=== PATIENT | male | born 1970 | race Caucasian/White ===

== ENCOUNTER 2020-09-12 12:45 | Inpatient (IN) | payer MEDICARE, OTHER ==
[~2020-09-12] VITALS: Ht 182.9 cm; Wt 87.7 kg
--- NOTE | 2020-09-12 12:55 | NUR ---
Dr Landry at the bedside for MSE.
[2020-09-12] MEDS ORDERED: CEFTRIAXONE 1 G in IV DEXTROSE 5% 50 ML IV ONE (13:00)
[2020-09-12] MEDS ORDERED: IV NORMAL SALINE 1000 ML BAG IV ONE ×2 (13:00→16:45)
--- NOTE | 2020-09-12 13:52 | NUR ---
GT site wound CX collected and sent to LAB.
[2020-09-12 13:53] LABS: MEAN CORPUSCULAR VOLUME 85.6 fL (73.0-96.2); PLATELET COUNT (AUTO) 334 K/uL (152-348)
[2020-09-12] MEDS ORDERED: IV NORMAL SALINE 250 ML IV ONE (13:54)
[2020-09-12] MEDS ORDERED: IOHEXOL 300MG/ML 100 ML INFUS..BTL ONE ×2 (13:54→16:00)
[2020-09-12] MEDS ORDERED: SWABABLE VALVE TRANSFER SET EA MC ONE (13:54)
[2020-09-12] MEDS ORDERED: CEFTRIAXONE /D5W 50ML IVPB **ER PYXIS IV ONE (13:55)
[2020-09-12] MEDS ORDERED: HYDR-4209 GT (14:10)
[2020-09-12] MEDS ORDERED: BUSP10TA3 GT (14:10)
[2020-09-12] MEDS ORDERED: INSU100I26 SQ (14:10)
[2020-09-12] MEDS ORDERED: ASCO500P18 GT (14:10)
[2020-09-12] MEDS ORDERED: ROSU10TA2 GT (14:10)
[2020-09-12] MEDS ORDERED: FERR325T28 GT (14:10)
[2020-09-12] MEDS ORDERED: MULT-213 GT (14:10)
[2020-09-12] MEDS ORDERED: CHLO473M3 PO (14:10)
[2020-09-12] MEDS ORDERED: POLY17PO4 GT (14:10)
[2020-09-12] MEDS ORDERED: IPRA3AMP23 IH ×2 (14:10)
[2020-09-12] MEDS ORDERED: LORA-259 GT (14:10)
[2020-09-12] MEDS ORDERED: LANS30CA56 GT (14:10)
[2020-09-12] MEDS ORDERED: INSU100C4 SQ (14:10)
[2020-09-12] MEDS ORDERED: ACET-2605 GT (14:10)
[2020-09-12] MEDS ORDERED: CARV6.252 GT (14:10)
[2020-09-12] MEDS ORDERED: SENN-261 GT (14:10)
[2020-09-12] MEDS ORDERED: ACET-2154 PO (14:10)
[2020-09-12] MEDS ORDERED: DOCU-141 GT (14:10)
[2020-09-12] MEDS ORDERED: LEVE500T20 GT (14:10)
[2020-09-12] MEDS ORDERED: NA P133E RC (14:10)
[2020-09-12] MEDS ORDERED: BISA10SU61 RC (14:10)
--- NOTE | 2020-09-12 14:40 | NUR ---
DR Morgan replaced GT w/ Fr, flused w/o difficulty.
[2020-09-12 14:53] LABS: CREATININE 0.8 mg/dL (0.6-1.3); POTASSIUM 4.1 mmol/L (3.5-5.1)
[2020-09-12 14:58] LABS: BILIRUBIN,DIRECT 0.2 mg/dL (0.0-0.2); BILIRUBIN,TOTAL 0.5 mg/dL (0.2-1.0); TOTAL PROTEIN, SERUM 8.1 g/dL (6.4-8.2)
[2020-09-12] MEDS ORDERED: DIATR MEGLU/DIATRIZOATE SODIUM 30 ML BOTTLE ONE (15:00)
--- NOTE | 2020-09-12 17:50 | NUR ---
Pt reposition to position of comfort. Remove IV line on Rt AC, due to infiltration from IV contrast, warm pack applied.
[2020-09-12] MEDS ORDERED: ACETAMINOPHEN 325 MG TABLET PO PRN (18:45)
[2020-09-12] MEDS ORDERED: MAGNESIUM HYDROXIDE 30 ML LIQUID UDC PO PRN (18:45)
[2020-09-12] MEDS ORDERED: BISACODYL 10 MG SUPP.RECT RC PRN (18:45)
[2020-09-12] MEDS ORDERED: FLEET ENEMA 133 ML BOTTLE RC PRN (18:45)
[2020-09-12] MEDS ORDERED: INSULIN REGULAR, HUMAN 300 UNITS/3 ML VIAL SQ PRN (18:45)
[2020-09-12] MEDS ORDERED: DEXTROSE 50% 50 ML DISP.SYRIN IV PRN (18:45)
[2020-09-12] MEDS ORDERED: ONDANSETRON 4 MG/2 ML VIAL IV PRN (18:45)
[2020-09-12] MEDS ORDERED: Z GUARD REMEDY PASTE 57 GM TUBE TOP PRN (18:45)
--- NOTE | 2020-09-12 19:14 | NUR ---
Handsoff report given to Trish VALDEZ pharmacy sales assistant.
--- NOTE | 2020-09-12 20:06 | NUR ---
Gave report to Vanessa from Med Surg, patient going to room 325.
--- NOTE | 2020-09-12 20:25 | NUR ---
Pt. admitted to Tele , under care of Dr. Blair Dx: cellulitis of G-Tube site Belongs List completed
[2020-09-12 20:55] VITALS: BP 104/46
[2020-09-12] MEDS: IV D5 1/2 NS 1000 ML 1,000 ML IV PRN (20:56)
--- NOTE | 2020-09-12 21:00 | NUR ---
RECEIVED PATIENT VIA GURNEY FROM ER. PATIENT IS ALERT TO SELF. NON-VERBAL BUT ABLE TO MAKE NEEDS KNOWN WITH EYE AND HAND MOVEMENTS. DENIES PAIN. NO FACIAL GRIMACE NOTED NOTED. TRACH NOTED, PATIENT ON RA SATING 97-98%. IV NOTED TO LEFT UPPER ARM, #20 GAUGE, IVF INFUSING. REDNESS AND DRAINAGE NOTED TO G-TUBE SITE. AREA CLEANED AND DRY, STERILE DRESSING APPLIED. ALL NEEDS ATTENDED, BED ALARM ON. WILL CONTINUE TO MONITOR AND ASSESS.
[2020-09-12] MEDS: BLOOD SUGAR DIAGNOSTIC 1 EACH STRIP VI SCH (21:35)
[2020-09-13 04:24] VITALS: BP 117/69
[2020-09-13 05:53] LABS: HEMATOCRIT 32.1 % (36.7-47.1); MEAN CORPUSCULAR HEMOGLOBIN 27.4 uug (23.8-33.4); MEAN CORPUSCULAR VOLUME 84.6 fL (73.0-96.2); PLATELET COUNT (AUTO) 329 K/uL (152-348)
[2020-09-13] MEDS: BLOOD SUGAR DIAGNOSTIC 1 EACH STRIP VI SCH ×4 (06:13→20:46)
[2020-09-13 06:14] LABS: CREATININE 0.7 mg/dL (0.6-1.3); PHOSPHOROUS 3.2 mg/dL (2.5-4.9); POTASSIUM 3.7 mmol/L (3.5-5.1)
--- NOTE | 2020-09-13 07:30 | NUR ---
Patient received in bed with eyes open, alert and oriented to self. Patient is verbal at times when he wants to make his needs known. Patient denies any pain or discomforts at this time. Trach is clear of secretions, dressing is dry and intact. Patient on RA with no SOB or difficulties breathing. IV in the left upper arm 20G infusing 75mL/hr as ordered with no redness or swelling. No acute distress noted. G-tube dressing is dry and intact. Fall precautions in place. Personal belongings and call light within easy reach. Will continue to monitor.
[2020-09-13] MEDS: IV D5 1/2 NS 1000 ML 1,000 ML IV PRN (09:08)
[2020-09-13] MEDS: CHLORHEXIDINE GLUCONATE 15 ML MOUTHWASH MM SCH ×2 (09:16→17:25)
[2020-09-13] MEDS: CEFTRIAXONE 1 G in IV DEXTROSE 5% 50 ML IV SCH (09:42)
[2020-09-13] MEDS: levETIRAcetam IV 1,000 MG in IV DEXTROSE 5% 100 ML IV SCH ×2 (10:38→20:44)
[2020-09-13] MEDS: INSULIN REGULAR, HUMAN 300 UNIT/3 ML VIAL SQ PRN ×2 (10:56→16:58)
[2020-09-13 11:04] VITALS: BP 114/69
[2020-09-13 15:47] VITALS: BP 110/71
[2020-09-13 20:00] VITALS: BP 107/76
[2020-09-14] MEDS: IV D5 1/2 NS 1000 ML 1,000 ML IV PRN ×2 (02:37→16:18)
[2020-09-14 04:20] VITALS: BP 121/79
[2020-09-14 06:16] LABS: MEAN CORPUSCULAR HEMOGLOBIN 27.8 uug (23.8-33.4); MEAN CORPUSCULAR VOLUME 84.9 fL (73.0-96.2); PLATELET COUNT (AUTO) 353 K/uL (152-348)
[2020-09-14] MEDS: BLOOD SUGAR DIAGNOSTIC 1 EACH STRIP VI SCH ×4 (06:23→20:49)
[2020-09-14] MEDS: INSULIN REGULAR, HUMAN 300 UNIT/3 ML VIAL SQ PRN ×2 (06:26→11:20)
[2020-09-14 06:36] LABS: CREATININE 0.8 mg/dL (0.6-1.3); POTASSIUM 3.7 mmol/L (3.5-5.1)
[2020-09-14] MEDS: CHLORHEXIDINE GLUCONATE 15 ML MOUTHWASH MM SCH ×2 (09:33→16:27)
[2020-09-14] MEDS: levETIRAcetam IV 1,000 MG in IV DEXTROSE 5% 100 ML IV SCH ×2 (09:34→20:49)
--- NOTE | 2020-09-14 09:43 | NUR ---
Called dietary to follow up with consult to re-start feeding. They stated they will get back to me because they need to find a wringer and setter. Will continue to follow up.
[2020-09-14] MEDS ORDERED: GLUCERNA 1.2 1000ML LIQUID GT PRN ×2 (10:00→12:54)
[2020-09-14] MEDS: CEFTRIAXONE 1 G in IV DEXTROSE 5% 50 ML IV SCH (10:10)
--- NOTE | 2020-09-14 11:44 | NUR ---
Glucerna 1.2 started as ordered at 20 mL/h. Will monitor to ensure patient is tolerating feeding and that there is no leakage.
[2020-09-14 12:44] VITALS: BP 116/71
[2020-09-14 15:38] VITALS: BP 112/78
--- NOTE | 2020-09-14 18:59 | NUR ---
Patient's g-tube dressing is clean, dry, and intact. No signs of leakage at this time. Will endorse to oncoming shift.
[2020-09-14 20:38] VITALS: BP 113/74
[2020-09-15 04:40] VITALS: BP 107/70
[2020-09-15] MEDS: BLOOD SUGAR DIAGNOSTIC 1 EACH STRIP VI SCH ×2 (07:46→11:44)
[2020-09-15] MEDS: CHLORHEXIDINE GLUCONATE 15 ML MOUTHWASH MM SCH (08:42)
[2020-09-15] MEDS: INSULIN REGULAR, HUMAN 300 UNIT/3 ML VIAL SQ PRN ×2 (08:44→11:43)
[2020-09-15] MEDS ORDERED: levETIRAcetam 500 MG/5 ML LIQUID UDC GT SCH (09:00)
[2020-09-15] MEDS ORDERED: LEVO500T90 PO (09:40)
[2020-09-15] MEDS: CEFTRIAXONE 1 G in IV DEXTROSE 5% 50 ML IV SCH (10:30)
[2020-09-15 10:54] VITALS: BP 78/48
[2020-09-15 12:00] VITALS: BP 98/63
--- NOTE | 2020-09-15 13:00 | NUR ---
GT FLUSHED AND CLAMPED. MIDLINE XENA DC'D. ANGIOCATH REMOVED INTACT. PREPARED FOR DISCHARGE.
--- NOTE | 2020-09-15 14:15 | NUR ---
DISCHARGED VIA NW/C, ACCOMPANIED BY AMBULANCE ATTENDANTS. ATTEMPTED TO CALL REPORT TO FACILITY X4. NO ONE ANSWERED.
--- NOTE | 2020-09-15 15:30 | NUR ---
LAST ATTEMPT TO CALL FACILITY TO GIVE REPORT SUCCESSFUL.
== END 2020-09-15 14:50 | DRG 393 ==
LOC: ER 12:45 → MEDSURG3 20:08 → TELE3 20:11 → MEDSURG3 20:23
PROVIDERS: ADMIT Internal Medicine; ATTEND Internal Medicine
DX: K94.23 Gastrostomy malfunction (principal); J96.90 Respiratory failure, unspecified, unspecified whether with hypoxia or hypercapnia; L03.311 Cellulitis of abdominal wall; G93.1 Anoxic brain damage, not elsewhere classified; F29 Unspecified psychosis not due to a substance or known physiological condition; F41.9 Anxiety disorder, unspecified; G40.909 Epilepsy, unspecified, not intractable, without status epilepticus; N40.0 Benign prostatic hyperplasia without lower urinary tract symptoms; R13.10 Dysphagia, unspecified; Z86.73 Personal history of transient ischemic attack (TIA), and cerebral infarction without residual deficits; Z79.4 Long term (current) use of insulin; D72.829 Elevated white blood cell count, unspecified; Z93.0 Tracheostomy status; Z20.822 Contact with and (suspected) exposure to COVID-19; Y84.8 Other medical procedures as the cause of abnormal reaction of the patient, or of later complication, without mention of misadventure at the time of the procedure; Y73.8 Miscellaneous gastroenterology and urology devices associated with adverse incidents, not elsewhere classified; Y92.129 Unspecified place in nursing home as the place of occurrence of the external cause; E11.22 Type 2 diabetes mellitus with diabetic chronic kidney disease; I12.9 Hypertensive chronic kidney disease with stage 1 through stage 4 chronic kidney disease, or unspecified chronic kidney disease
CPT/HCPCS: 36415; 70030-TC; 71045; 74021; 83605; 83735; 84100; 85025; 85730; 86850; 86900; 86901; 87040; 87070; 87077; 93005; A4663; G0378; J0696; J1815; J1953; J3490; J7030; J7050; J7060; Q9963; Q9967